=== PATIENT | female | born 2000 | race Two or more races ===

== ENCOUNTER 2022-03-31 16:15 | Emergency (ER) | payer MEDICAID ==
[~2022-03-31] VITALS: Ht 180.3 cm; Wt 86.4 kg
[2022-03-31 17:08] VITALS: BP 118/85
[2022-03-31] MEDS ORDERED: LIDOcaine 1% W/epiNEPHrine 1:100,000 20ml vial SQ ONE (17:25)
[2022-03-31] MEDS ORDERED: LIDOCAINE 1%/EPI 1:100,000 inj. 10 ML multi-dose vial SQ ONE (17:40)
== END 2022-03-31 19:36 | disposition home or self-care (01) ==
LOC: ER 16:16
DX: S91.115A Laceration without foreign body of left lesser toe(s) without damage to nail, initial encounter (principal); X58.XXXA Exposure to other specified factors, initial encounter; Y93.89 Activity, other specified; Y92.89 Other specified places as the place of occurrence of the external cause; Y99.8 Other external cause status
CPT/HCPCS: 12001; 73564; 73630; 99284; A6449